=== PATIENT | male | born 1960 | race African-American/Black ===

== ENCOUNTER 2020-05-17 19:06 | Emergency (ER) | payer MEDICAID ==
[~2020-05-17] VITALS: Ht 170.2 cm; Wt 140.0 kg
[~2020-05-17 19:06] MED LIST: ALBU6.7H11 INH; ALLO100T PO; AMLO10TA80 PO; ASPI-1497 PO; ATEN50TA PO; FURO-152 PO; NITR0.4T49 SL
[2020-05-17 19:08] VITALS: BP 174/116
== END 2020-05-17 21:18 | disposition left against medical advice (07) ==
LOC: ER 19:06
DX: Z53.21 Procedure and treatment not carried out due to patient leaving prior to being seen by health care provider (principal); R07.9 Chest pain, unspecified
CPT/HCPCS: 93005